=== PATIENT | female | born 1995 | race Two or more races ===

== ENCOUNTER 2016-12-19 11:56 | Emergency (ER) | payer SELFPAY ==
[2016-12-19 12:00] VITALS: TEMP 98; BMI 35.4
[2016-12-19] MEDS ORDERED: KETOROLAC TROMETHAMINE 30 MG/1 ML VIAL IVPUSH ONE (12:32)
[2016-12-19] MEDS ORDERED: KETOROLAC TROMETHAMINE 30 MG/1 ML VIAL ONE (12:46)
--- NOTE | 2016-12-19 12:51 | PDOC ---
History of Present Illness - General Chief Complaint: Pain, Acute Stated Complaint: PAIN, ACUTE Time Seen by Provider: 12/19/16 12:20 History Source: Patient - History of Present Illness Timing/Duration: reports: getting worse Quality: reports: severe Past History - Past Medical History Allergies/Adverse Reactions: Allergies Allergy/AdvReac Type Severity Reaction Status Date / Time No Known Allergies Allergy Verified 12/19/16 12:00 Home Medications: Ambulatory Orders NK [No Known Home Medication] 09/13/16 Other medical history: PATIENT DENIES MEDICAL HISTORY - Reproductive History Polycystic Ovaries: Yes - Psycho/Social/Smoking Cessation Hx Suicidal Ideation: No Smoking Status: No Smoking History: Never smoked Number of Cigarettes Smoked Daily: 0 Information on smoking cessation initiated: No Hx Alcohol Use: No Drug/Substance Use Hx: No Review of Systems - Review of Systems Constitutional: No: Chills, Fever ABD/GI: Yes: Nausea. No: Vomiting : No: Dysuria, Hematuria *Physical Exam - Vital Signs Last Vital Signs Temp Pulse Resp BP Pulse Ox 98.0 F 78 16 124/65 97 12/19/16 11:58 12/19/16 11:58 12/19/16 11:58 12/19/16 11:58 12/19/16 11:58 - Physical Exam General Appearance: Yes: Appropriately Dressed. No: Apparent Distress HEENT: positive: Normal Voice Neck: positive: Supple Respiratory/Chest: negative: Respiratory Distress Female Pelvic Exam: positive: cervical os closed, normal adnexa. negative: CMT , adnexal tenderness, vaginal bleeding Gastrointestinal/Abdominal: positive: Tender, Soft. negative: Increased Bowel Sounds, Distended, Guarding Musculoskeletal: negative: CVA Tenderness Integumentary: positive: Dry, Warm Neurologic: positive: Fully Oriented, Alert, Normal Mood/Affect (to mid and L suprapubic area, NT over mcburneys) ED Treatment Course - LABORATORY CBC & Chemistry Diagram: 12/19/16 12:55 12/19/16 12:55 - RADIOLOGY Radiology Studies Ordered: Category Date Time Status PELVIS(OTHER) US [US] Stat Ultrasound 12/19/16 12:29 Ordered TRANSVAGINAL ULTRASOUND US [US] Stat Ultrasound 12/19/16 12:29 Ordered - Medications Given in the ED: ED Medications Discontinued Medications Generic Name Dose Route Start Last Admin Trade Name Freq PRN Reason Stop Dose Admin Ketorolac Tromethamine 30 mg 12/19/16 12:32 12/19/16 12:47 Toradol Injection - IVPUSH 12/19/16 12:33 30 mg ONCE ONE Administration Medical Decision Making - Medical Decision Making 12/19/16 12:48 21 yo F, endorses h/o b/l ovarian cysts, told she had "many cysts" on US 2 years ago, f[place]u [facility], here w/ severe pelvic pain, mostly on the L side x 1 week. +nausea yesterday, no vomiting, f/c, dysuria or abnl vag discharge. States she has been dx w/ cysts, has chronic intermittent pelvic pain but usually stays home as she hates coming to the ER as per pt. This time, pain os worse so decided to come in. See exam R/o torsion H/o ovarian cysts +ttp to mid and L suprapubic area w/ unremarkable pelvic exam -pain control -labs -US 12/19/16 13:27 Preg test +. Pt states she is on OCP x 1 year and is compliant. No vag bleed currently. Is , 4 weeks per LMP. Beta and US pending 12/19/16 13:31 12/19/16 13:32 12/19/16 15:24 Beta 241 w/ no viable IUP and no adnexal masses on US. L ovarian cyst w/ FF seen w/ no e/o torsion. Pt given copy of US. Will dc to f/u with PLATE GRAINER in 2 days for rpt evaluation w/ beta and possible rpt US. Pt aware to return to ED in 2 days if unable to be seen by her PLATE GRAINER 12/19/16 15:30 12/19/16 15:31 12/19/16 15:31 *DC/Admit/Observation/Transfer Diagnosis at time of Disposition: Qualifiers: Weeks of gestation: unspecified Qualified Code(s): Z33.1 - state, incidental - Discharge Dispostion Disposition: HOME Condition at time of disposition: Good - Patient Instructions Printed Discharge Instructions: Managing Symptoms of Additional Instructions: Your bhcg was 241 with no evidence of an intrauterine and no evidence of an ectopic . This most likely reflects early . You need to see your PLATE GRAINER in 2 days for repeat beta HCG and possibly repeat ultrasound. If you are unable to see your integrative medicine physician, return to ED in 2 days. Take tylenol only for pain, no motrin/ibuprofen
[2016-12-19 13:06] LABS: URINE APPEARANCE CLEAR; URINE BILIRUBIN NEGATIVE (NEGATIVE); URINE COLOR YELLOW; URINE GLUCOSE (UA) NEGATIVE (NEGATIVE); URINE KETONE NEGATIVE (NEGATIVE); URINE NITRITE NEGATIVE (NEGATIVE); URINE PROTEIN NEGATIVE (NEGATIVE); URINE UROBILINOGEN NEGATIVE E.U./dl (0.2-1.0)
[2016-12-19 13:06] LABS: BASOPHIL 0.5 % (0-2.0); EOSINOPHIL 1.6 % (0-4.5); MCH 29.3 pg (25.7-33.7); MCHC 33.1 g/dl (32.0-36.0); MEAN CELL VOLUME 88.8 fl (80-96); NEUTROPHILS 55.6 % (42.8-82.8); PLATELET COUNT 254 K/MM3 (134-434); RDW 13.3 % (11.6-15.6); WHITE BLOOD COUNT 7.1 K/mm3 (4.0-10.0)
[2016-12-19 13:15] LABS: URINE BLOOD 1+ (NEGATIVE); URINE LEUK ESTERASE TRACE (NEGATIVE)
[2016-12-19 13:30] LABS: ALBUMIN 3.5 g/dl (3.4-5.0); ALK PHOS 106 U/L (45-117); ANION GAP 11 (8-16); BILIRUBIN,TOTAL 0.2 mg/dL (0.2-1.0); CO2 23 mmol/L (21-32); COCKROFT - GAULT 210.6215; CREATININE 0.6 mg/dL (0.55-1.02); GLUCOSE,RANDOM 87 mg/dL (74-106); SGOT/AST 41 U/L (15-37); SGPT/ALT 70 U/L (12-78); TOT PROT 7.2 g/dl (6.4-8.2)
[2016-12-19 14:52] LABS: URINE MUCUS MANY; URINE RBC 1 /hpf (0-3); URINE WBC 2 /hpf (3-5)
[2016-12-19 15:43] VITALS: BP 120/72; PULSE 80
== END 2016-12-19 15:43 | disposition home or self-care (01) ==
LOC: JER 11:56
PROC: 3E0333Z Introduction of Anti-inflammatory into Peripheral Vein, Percutaneous Approach (ICD-10-PCS; principal; 2016-12-19)
DX: O34.81 Maternal care for other abnormalities of pelvic organs, first trimester (principal); N83.292 Other ovarian cyst, left side; N83.291 Other ovarian cyst, right side; Z3A.00 Weeks of gestation of pregnancy not specified
CPT/HCPCS: 36415; 76801-TC; 76817-TC; 80053; 81003; 81015; 84702; 84703; 85025; 87086; 87491; 87591; 99283-25

== ENCOUNTER 2016-12-21 14:16 | Emergency (ER) | payer SELFPAY ==
[2016-12-21 14:27] VITALS: BP 117/48; PULSE 80; TEMP 98.5; BMI 26.5
== END 2016-12-21 15:55 | disposition home or self-care (01) ==
LOC: JERFT 14:16
DX: O26.891 Other specified pregnancy related conditions, first trimester (principal); Z3A.01 Less than 8 weeks gestation of pregnancy
CPT/HCPCS: 36415; 84702; 99281-25

== ENCOUNTER 2017-08-08 07:20 | Inpatient (IN) | payer OTHER ==
[~2017-08-08 07:20] MED LIST: CITRIC ACID/SODIUM CITRATE 30 ML UNIT-DOSE CUP PO ONE; ELECTROLYTE-148 SOLN 500 ML IV ONE
[2017-08-08] MEDS ORDERED: ELECTROLYTE-148 SOLN 1,000 ML IV SCH (07:50)
[2017-08-08 08:15] VITALS: BMI 32.3
[2017-08-08] MEDS ORDERED: OXYTOCIN 20 UNITS in 0.9% NS 20 UNIT/1,000 ML INFUS.BAG IV ONE (08:34)
[2017-08-08] MEDS ORDERED: morphine SULFATE/Preservative Free 0.5 MG/ML (1cc Syringe) ONE (08:38)
[2017-08-08] MEDS ORDERED: ceFAZolin SODIUM 1 GM VIAL ONE (08:43)
[2017-08-08] MEDS ORDERED: OXYTOCIN 10 UNITS/ML VIAL ONE ×3 (08:44→08:47)
[2017-08-08] MEDS ORDERED: SODIUM CHLORIDE 0.9% P/F 10 ML VIAL IJ ONE (09:24)
[2017-08-08] MEDS ORDERED: ONDANSETRON 4 MG/2 ML VIAL IVPUSH PRN (09:30)
[2017-08-08] MEDS ORDERED: KETOROLAC TROMETHAMINE 30 MG/1 ML VIAL ONE (09:36)
[2017-08-08] MEDS: OXYTOCIN 20 UNITS in 0.9% NS 20 UNIT/1,000 ML INFUS.BAG IV SCH ×2 (10:00→18:30)
[2017-08-08 10:17] LABS: ARTERIAL BLOOD GAS BASE EXCESS -2.5 meq/l (-2-2); ARTERIAL BLOOD GAS HCO3 24.8 meq/L (22-26); ARTERIAL BLOOD GAS PO2 9.7 mmHg (80-100); ARTERIAL BLOOD GAS pH 7.29 (7.35-7.45)
[2017-08-08 10:23] LABS: VENOUS BLOOD GAS HCO3 21.7 meq/L (19-25); VENOUS PH 7.33 (7.32-7.42)
[2017-08-08 10:27] LABS: ARTERIAL BLD GAS O2 SATURATION 27.9 % (90-98.9); ARTERIAL BLOOD GAS BASE EXCESS -2.5 meq/l (-2-2); ARTERIAL BLOOD GAS PO2 17.3 mmHg (80-100); ARTERIAL BLOOD GAS pH 7.31 (7.35-7.45)
[2017-08-08] MEDS ORDERED: SENNOSIDES/DOCUSATE COMBO (SENNA PLUS) TABLET (UD) PO PRN (10:29)
[2017-08-08] MEDS ORDERED: IBUPROFEN 800 MG/8 ML IJ IVPB PRN (10:29)
[2017-08-08] MEDS ORDERED: METHYLERGONOVINE MALEATE 0.2 MG/1 ML AMP IM PRN (10:29)
[2017-08-08 10:31] LABS: VENOUS PH 7.34 (7.32-7.42)
--- NOTE | 2017-08-08 10:45 | HP ---
Past Medical History - Primary Care Physician PCP:: Tanisha Posada - Admission Chief Complaint: 21 yrs , Twin gestation, is admitted in labor , onset LP since 5.30 AM. she is scheduled for elective primary c/section due to Vx / Transverse lie at 37.2 weeks gestation , as per recommendations by MFM ( Dr luke ) History of Present Illness: PNC at , [facility] (formerly [facility]3] . . wt gain 20 lbs work Up : O Pos, Hbsag Neg, Rpr nr, Rubella pos , Hiv neg (01/31 & ), Sickle neg , Quantiferon neg, .pap 08/31/16 NILM, Gc/ct neg (01/31 & 07/30/17) 1 hr Gtt 141. , 3 Hr Gtt wnl ( 82, 156, 117, 116 ). Gbs neg Patient was followed by MFM by serial sonograms for growth . 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 Weeks Gestation by Dates: 36.6 ...EDC by Dates: 08/30/17 ...EDC by Sono: 08/28/17 (37.2/7 weeks ) Heme/Onc: Yes: Anemia (rx po iron & pnv during ) Infectious Disease: No: AIDS, HIV, STD's, Tuberculosis Psych: No: Anxiety, Bipolar, Depression Endocrine: No: Diabetes Mellitus, Hypothyroidism - Past Surgical History Past Surgical History: Yes: None Hx Myomectomy: No Hx Transabdominal Cerclage: No - Smoking History Smoking history: Never smoked Have you smoked in the past 12 months: No Aproximately how many cigarettes per day: 0 - Alcohol/Substance Use Hx Alcohol Use: No History of Substance Use: reports: None Home Medications - Allergies Allergies/Adverse Reactions: Allergies Allergy/AdvReac Type Severity Reaction Status Date / Time No Known Allergies Allergy Verified 07/25/17 10:52 - Home Medications Home Medications: Ambulatory Orders Pnv95/Ferrous Fumarate/FA [ Vitamin Tablet] 1 each PO DAILY 06/27/17 Physical Exam - Maternity Vital Signs: Vital Signs Temperature 98.3 F 08/08/17 08:30 Pulse Rate 68 08/08/17 08:30 Respiratory Rate 20 08/08/17 08:30 Blood Pressure 139/84 08/08/17 08:30 O2 Sat by Pulse Oximetry (%) Constitutional: Yes: Well Nourished, Anxious, Moderate Distress Eyes: Yes: WNL HENT: Yes: WNL, Normocephalic Neck: Yes: WNL Cardiovascular: Yes: WNL, Regular Rate and Rhythm Lungs: Clear to auscultation Breast(s): Yes: WNL - Abdominal Exam/OB Fundal Height: 38 Number of Fetuses: Multiple Presentation: Vertex, Transverse Contractions: Yes Regularity: Regular (2-3 min) Intensity: Mod/Strong Monitor Mode: External Heart Rate (range): 120-130 LLQ / B baby 130-140 MLQ Heart Rate Location: [facility] Category: I Accelerations: Uniform Decelerations: None - Vaginal Exam/OB Vaginal Bleediing: No Speculum Exam: No Dilatation (cm): close Effacement (%): 70 Amniotic Membrane Status: Intact Presentation: Vertex/Position (A -Baby Vx, Bbay presentation transverse , head to left) Station: -1 - Physical Exam Musculoskeletal: Yes: WNL Extremities: Yes: WNL. No: Calf Tenderness Edema: Yes Edema: LLE: 1+, RLE: 1+ Integumentary: Yes: WNL Deep Tendon Reflex Grade: Normal +2 ...Motor Strength: WNL Psychiatric: Yes: WNL, Alert, Oriented - Labs Lab Results: Laboratory Tests 08/01/17 08/01/17 08/01/17 11:20 11:20 11:20 WBC 5.7 RBC 3.74 Hgb 10.5 L D Hct 32.1 L D Plt Count 141 D PT with INR 9.90 L INR 0.88 PTT (Actin FS) 26.8 L Sodium 138 Potassium 3.7 Carbon Dioxide 19 L BUN 12 Creatinine 0.8 D Random Glucose 142 H D Calcium 8.0 L RPR Titer 08/01/17 11:20 WBC RBC Hgb Hct Plt Count PT with INR INR PTT (Actin FS) Sodium Potassium Carbon Dioxide BUN Creatinine Random Glucose Calcium RPR Titer Nonreactive Hemorrhage Risk Assessment - Risk Factors Medium Risk Factors: Yes: Multiple gestation Risk Score: 1 Risk Level: Medium Risk Problem List - Problems (1) 37 or more weeks gestation of Code(s): ZMD4316 - (2) Twin , monochorionic diamniotic in third trimester Code(s): O30.033 - TWIN , MONOCHORIONIC/DIAMNIOTIC, THIRD TRIMESTER (3) Labor established Code(s): [id number] - Assessment/Plan 21 yrs , 37.2/7 weeks twins ( vx & transverse , monochorionic diamniotic twins ) pt in early labor plan delivery by primary c/section
--- NOTE | 2017-08-08 11:10 | OP ---
Operative Note - Note: Operative Date: 08/08/17 Pre-Operative Diagnosis: 37.2 weeks, twin vx/transverse in labor Operation: Primary LFTC/Section Findings: A Baby 9.30 am Baby Boy, Vx LOT , 9/9, Wt 6'7" , Ht 18.5" B Baby 9.32 AM [place] Boy, Double Footling Breech , 9/9 , Wt6", Ht 18.5" Placenta monochorionic diamniotic Dr Francisco , Wallpaper Inspector And Shipper present in the room . Both tubes & ovaries normal Left partubal cyst 3cmm cauterized at base , sent for pathology Right partubal cyst 1 cm cauterized at pedicle sent for pathology Post-Operative Diagnosis: Other (left & right partubal cysts) Surgeon: Tanisha Posada Fly Fishing Guide: Miguelangel Trejo Anesthesiologist/ORCHESTRA TEACHER: Jose L Martinez Anesthesia: Spinal Specimens Removed: cord segments for A & B baby for cord gases. cord blood sample. placenta. Lt paratubal cyst. Rt paratubal cyst Estimated Blood Loss (mls): 800 Drains, Volume Out (mls): 300 (page output in OR ) Operative Report Dictated: Yes
--- NOTE | 2017-08-08 11:24 | PN ---
Delivery - Delivery Section: Primary, Low Flap Transverse (& excision of bilateral tubal cysts) Type of Anesthesia: Epidural, Spinal Episiotomy/Laceration: None EBL (cc): 800 (page put put 300ml geovanny color ) Delivery, Single - [place] Feeding Plan Initial Plan: Elected not to breastfeed exclusively throughout hospitalization Delivery, Multiple Births - Stages of Labor Delivery Baby "A" Date: 08/08/17 Time: 09:30 Placenta/Membranes "A" Date: 08/08/17 Time: 09:35 Delivery Baby "B" Date: 08/08/17 Time: 09:32 - Condition of Multiple Births 1 (A) Infant Gender: Male Weight: 6 lb 7 oz Position: Left, OT Total Hours ROM (HRS/MINS): 5min Placenta: Yes: Manual Removal, Uterine Exploration [place] 2 (B) Grit Removal Operator/Branch Operations Specialist Present: Yes Grit Removal Operator: Lizzy Francisco Infant Gender: Male Weight: 6 lb Position: SP (double footling breech) Total Hours ROM (HRS/MINS): 5 min Placenta: Yes: Manual Removal, Uterine Exploration (monochorionic diamniotic twin placenta) - [place] 1 (A) 1 Minute Score: 9 1 (A) 5 Minutes Score: 9 2 (B) 1 Minute Score: 9 [place] 2 (B) 5 Minutes Score: 9 Remarks - Remarks Remarks: 21 yrs Indication C/section , 37.2 weeks Twin gestation in labor , Vx/ transverse lie Gbs neg pnc at 2, [facility] intraop course uneventful iv ancef 1 gm ivpb prior to incision was given
--- NOTE | 2017-08-08 13:20 | DS ---
Physical Exam-MEDICAL STAFF PHYSICIAN Vital Signs: Vital Signs Temperature 97.9 F 08/08/17 11:15 Pulse Rate 71 08/08/17 11:15 Respiratory Rate 18 08/08/17 12:00 Blood Pressure 121/70 08/08/17 11:15 O2 Sat by Pulse Oximetry (%) 100 08/08/17 11:15 Selected Entries 08/12/17 09:06 Temperature 98.6 F Pulse Rate 71 Blood Pressure 124/83 Constitutional: Yes: Well Nourished Eyes: Yes: WNL HENT: Yes: WNL Neck: Yes: WNL Cardiovascular: Yes: WNL Respiratory: Yes: WNL Gastrointestinal: Yes: WNL, Normal Bowel Sounds, Soft. No: Distention Renal/: Yes: WNL ....Post : Yes: Uterus firm, Uterus non-tender, Moderate lochia rubra Breast(s): Yes: WNL Musculoskeletal: Yes: WNL Extremities: Yes: WNL. No: Calf Tenderness Edema: LLE: 1+, RLE: 1+ Wound/Incision: Yes: Clean/Dry, Well Approximated, [place] Intact, Open to air. No: Reddened, Bleeding, Excoriated Neurological: Yes: WNL ...Motor Strength: WNL Psychiatric: Yes: WNL, Alert Labs: Laboratory Tests 08/11/17 06:00 WBC 7.7 RBC 2.94 L Hgb 8.4 L Hct 25.6 L Plt Count 170 D Delivery - Delivery Section: Primary, Low Flap Transverse (& excision of bilateral tubal cysts) Type of Anesthesia: Epidural, Spinal Episiotomy/Laceration: None EBL (cc): 800 (page put put 300ml geovanny color ) Delivery, Single - Feeding Plan Initial Plan: Elected not to breastfeed exclusively throughout hospitalization Delivery, Multiple Births - Stages of Labor First Stage Date: 08/08/17 Time: 05:30 Delivery Baby "A" Date: 08/08/17 Time: 09:30 Placenta/Membranes "B" Date: 08/08/17 Time: 09:35 Placenta/Membranes "A" Date: 08/08/17 Time: 09:35 Delivery Baby "B" Date: 08/08/17 Time: 09:32 - Condition of Multiple Births [place] 1 (A) Glass Washer/Traffic Coordinator Present: Yes Glass Washer: Cristal Easely Gender: Male Weight: 6 lb 7 oz Total Hours ROM (HRS/MINS): 0/05 2 (B) Glass Washer/Traffic Coordinator Present: Yes Glass Washer: Cristal Easley Gender: Male Weight: 6 lb Total Hours ROM (HRS/MINS): 0/05 - 1 (A) 1 Minute Score: 9 1 (A) 5 Minutes Score: 9 2 (B) 1 Minute Score: 9 [place] 2 (B) 5 Minutes Score: 9 Remarks - Remarks Remarks: 21 yrs Indication C/section , 37.2 weeks Twin gestation in labor , Vx/ transverse lie Gbs neg pnc at 2, [facility] intraop course uneventful iv ancef 1 gm ivpb prior to incision was given . post op course uneventful post op anemia was counselled she will ct po iron & pnv she is discharged by Dr Mckeon on 08/12/17 she will rtc on 08/13/17 for nain removal. Discharge Summary Reason For Visit: C/SECTION Current Active Problems 37 or more weeks gestation of (Acute) Labor established (Acute) Twin , monochorionic diamniotic in third trimester (Acute) Condition: Stable - Instructions Diet, Activity, Other Instructions: Post Instructions DIET: Continue good diet high in protein, calcium, and iron rich foods. Drink at least eight (8) glasses of water daily in addition to other fluids. ct Regular diet MEDICATIONS: Continue vitamins and iron as previously directed. Motrin and Tylenol may be taken for minor discomfort. ACTIVITY: Mild to moderate exercise may be started in two (2) weeks. Take frequent rest periods. Resume normal activity after six (6) week check up. WOUND CARE OF OPERATIVE SITE: Continue use of perineal bottle until vaginal discharge stops. Keep area clean. Shower daily. Keep abdominal wound dry. Report any drainage or redness to physician. Tub baths, tampons and douches are not permitted for [address] Breast feeding & or Bottle feeding BREAST CARE: (For those that are not breast feeding): If engorgement occurs: Wear tight fitting bra. Take Tylenol or Motrin for pain. Apply cold packs (ice in bags to each breast ) FAMILY PLANNING: There are many control alternatives to pursue and they should be discussed at your first office visit. You may resume sexual activity after your six (6) week check up. (Remember, breast feeding is not a contraceptive) NEXT PHYSICIAN APPOINTMENT: Be certain to call for a one (1) week appointment, unless otherwise directed. Rtc Saturday for nain removal Call Clinic or got to Emergency Dept if you have any of the following: Heavy vaginal bleeding Painful urination Leg pain Unusual odor noted to vaginal bleeding High fever Red streaking noted on breast Referrals: Tanisha Posada MD [Staff Physician] - Disposition: HOME - Home Medications Comprehensive Discharge Medication List: Ambulatory Orders Pnv95/Ferrous Fumarate/FA [ Vitamin Tablet] 1 each PO DAILY 06/27/17 Acetaminophen [Tylenol .Regular Strength -] 500 mg PO Q4H PRN #30 tablet Ferrous Sulfate [Feosol] 325 mg PO BIDPC #60 tab 08/08/17 Ibuprofen [Motrin -] 600 mg PO Q4H PRN #30 tablet 08/08/17 Vitamins (Sjr) - 1 tab PO DAILY #30 tablet 08/08/17
[2017-08-08] MEDS: CEFAZOLIN 1 GM PUSH 1 GM/10 ML DISP.SYRIN IVPUSH SCH (17:26)
[2017-08-09] MEDS: CEFAZOLIN 1 GM PUSH 1 GM/10 ML DISP.SYRIN IVPUSH SCH ×2 (01:53→10:54)
[2017-08-09] MEDS: OXYTOCIN 20 UNITS in 0.9% NS 20 UNIT/1,000 ML INFUS.BAG IV SCH ×2 (01:53→16:42)
[2017-08-09] MEDS ORDERED: oxyCODONE HCL 5 MG TABLET PO PRN (08:00)
[2017-08-09 08:42] LABS: BASO % 0.6 % (0-2.0); EOS % 0.4 % (0-4.5); MCH 28.2 pg (25.7-33.7); MCHC 32.7 g/dl (32.0-36.0); MEAN CELL VOLUME 86.3 fl (80-96); MEAN PLT VOLUME 11.3 fl (7.5-11.1); PLATELET COUNT 120 K/MM3 (134-434); RDW 15.7 % (11.6-15.6); WHITE BLOOD COUNT 8.2 K/mm3 (4.0-10.0)
[2017-08-09] MEDS: SIMETHICONE 80 MG TAB.CHEW (FP) PO PRN ×2 (08:46→14:18)
[2017-08-09] MEDS: IBUPROFEN 600 MG TABLET (FP) PO PRN ×3 (08:46→20:50)
[2017-08-09] MEDS: ACETAMINOPHEN 325 MG TABLET (FP) PO PRN (08:47)
--- NOTE | 2017-08-09 10:03 | OP ---
DATE OF OPERATION: 08/08/2017 PREOPERATIVE DIAGNOSIS: A 37.2 weeks' twin gestation, vertex transverse lie and patient in early labor. OPERATION DONE: Primary low-flap transverse section. POSTOPERATIVE DIAGNOSES: 1. A 37.2 weeks' twin gestation, vertex transverse lie and patient in early labor. 2. Left and right paratubal cysts. SURGEON: Tanisha Posada MD SPANISH MEDICAL INTERPRETER: ANGELES Tierney ANESTHESIOLOGIST: Michelle Domingo ANESTHESIA: Spinal. FINDINGS: This is a 21-year-old, 2, para 1-0-0-1 who is 37.2 weeks, had onset of labor since 5:30 a.m. Cervix is closed, station vertex is -2 to -1 station, and A Baby is vertex, B Baby is in transverse lie. DESCRIPTION OF PROCEDURE: Abdomen was shaved, prepped. Suárez catheter was placed. Patient was taken to the operating room table and spinal anesthesia was given and the patient was placed in supine position. Abdomen was painted and draped in usual manner. Pfannenstiel incision was made in the skin and subcutaneous tissue. Anterior rectus sheath was incised transversely. Bleeding points were clamped and cauterized. Rectus muscle was amputated from the rectus sheath. Parietal peritoneum was opened vertically. Lower flap of the peritoneum was incised transversely, and A Baby sac was punctured, and the A Baby was delivered from the vertex presentation LOT position at 9:30 a.m. Apgars were 9 and 9, baby boy. Cord was clamped, cut, and cord blood was collected. Baby's weight was 6 pounds 7 ounces, and the baby was handed over. Cord segments also were cut for the cord blood gases. Then, B sac was punctured. Amniotic fluid was clear. Double footling breech was noted. The baby's legs, the buttocks, and then, the body, anterior arm and the posterior arm, and lastly, the head was delivered, a baby boy, at 9:32 a.m. Apgars were 9 and 9. Baby's weight was 6 pounds. Again, the cord was clamped. Cord segment was sent for ABG, and cord blood was collected. Placenta was removed completely with the membrane. It was monochorionic, diamniotic placenta and sent for pathology examination. Uterine cavity was cleaned, and uterine incision was closed in 2 layers. First layer was a continuous locking with a Biosyn 0 suture. Second layer was a continuous, intermittently locking with a Biosyn 0 suture. Hemostasis was verified, and the bladder peritoneum was closed also with a Biosyn 0 suture. Continuous suture was taken. Both the tubes and ovaries were normal. At the terminal end of the tube, 3-cm simple, bilateral tubal cysts were noted. So, at the base of the cyst, a Dianne clamp was applied, and with the cautery, it was dissected. The cyst was sent for pathology examination. Hemostasis was verified, and then, also, on the right side, 1-cm cyst with a pedicle was noted in the pedicle was cauterized and the cyst was sent for pathology examination. Irrigation was done. The sponge, instrument, and needle count was correct. Hemostasis verified again , and abdominal closure was done. Parietal peritoneum was closed with a Vicryl 0 suture. Muscles were approximated together with Vicryl interrupted sutures, and the anterior rectus sheath was closed with a Vicryl 0 continuous suture. Hemostasis was verified in the subcutaneous tissue and subcutaneous interrupted sutures were taken and skin was approximated with nain. A pressure dressing was given. Blood clots were removed from the vagina. The patient had received 1 g of IV Ancef prior to the incision. Estimated blood loss was 800 mL. Urine output intraoperatively was 300 mL. It was geovanny color. Gerson [id number] MTDD
[2017-08-09] MEDS ORDERED: BISACODYL 10 MG SUPP.RECT RC PRN (10:29)
[2017-08-09] MEDS: ENOXAPARIN NA (PORCINE) 40 MG/0.4 ML DISP.SYRIN SQ SCH (10:53)
[2017-08-09] MEDS: PRENATAL VITAMINS W/ FOLIC ACID TABLET (FP) PO SCH (10:54)
--- NOTE | 2017-08-09 11:16 | PN ---
Progress Note (short form) - Note Progress Note: Anesthesia postop note 21y/o F s/p spinal anesthesia for section, duramorph for postop pain POD#1, vss, aaox3, pain well controlled, sensorymotor intact distally. No anesthesia complications so far
--- NOTE | 2017-08-09 14:17 | PN ---
Progress Note (short form) - Note Progress Note: pod 1 doing well, no c/o, no dizziness CBC, BMP 08/09/17 08:10 Last Vital Signs Temp Pulse Resp BP Pulse Ox 97.9 F 68 18 116/73 100 08/09/17 06:00 08/09/17 09:40 08/09/17 09:40 08/09/17 09:40 08/08/17 11:15 abdomen soft, no distension, no cva incision dry, clean no excess vaginal bleeding no calf tenderness impression anemia , asymptomatic , no active vaginal bleeding plan iron ,vit when on regular diet repeat cbc 3 post op day 3 ambulate
[2017-08-09] MEDS: oxyCODONE HCL 5 MG TABLET PO PRN ×2 (14:18→20:50)
[2017-08-09] MEDS: FERROUS SO4 325 MG TABLET (FP) PO SCH (18:12)
[2017-08-10] MEDS: PRENATAL VITAMINS W/ FOLIC ACID TABLET (FP) PO SCH (09:46)
[2017-08-10] MEDS: ENOXAPARIN NA (PORCINE) 40 MG/0.4 ML DISP.SYRIN SQ SCH (09:47)
[2017-08-10] MEDS: FERROUS SO4 325 MG TABLET (FP) PO SCH ×2 (09:47→18:06)
[2017-08-10] MEDS: oxyCODONE HCL 5 MG TABLET PO PRN ×2 (09:50→17:25)
[2017-08-10] MEDS: SIMETHICONE 80 MG TAB.CHEW (FP) PO PRN ×2 (09:51→17:24)
[2017-08-10] MEDS: IBUPROFEN 600 MG TABLET (FP) PO PRN ×2 (09:51→17:24)
--- NOTE | 2017-08-10 18:30 | PN ---
Post Progress Note - Subjective Subjective: Pt feeling well. Mild incisional pain. OOB and ambulating. Breast and bottle feeding Post Day: 2 Type of Delivery: Primary C/S Vital Signs: Vital Signs Temperature 98.7 F 08/10/17 10:00 Pulse Rate 67 08/10/17 10:00 Respiratory Rate 20 08/10/17 10:00 Blood Pressure 129/62 08/10/17 10:00 O2 Sat by Pulse Oximetry (%) 100 08/08/17 11:15 Breast Exam: Yes: Soft Uterus: Yes: Fundus Firm Incision: Yes: Nakia intact Abdomen/GI: Yes: Abdomen soft Lochia, amount: Small Extremities: Yes: Calves non-tender Perineum: Yes: Intact Activity: Ambulating - Labs Labs: CBC WBC 8.2 K/mm3 (4.0-10.0) D 08/09/17 08:10 RBC 2.95 M/mm3 (3.60-5.2) L D 08/09/17 08:10 Hgb 8.3 GM/dL (10.7-15.3) L D 08/09/17 08:10 Hct 25.5 % (32.4-45.2) L D 08/09/17 08:10 MCV 86.3 fl (80-96) 08/09/17 08:10 MCH 28.2 pg (25.7-33.7) 08/09/17 08:10 MCHC 32.7 g/dl (32.0-36.0) 08/09/17 08:10 RDW 15.7 % (11.6-15.6) H D 08/09/17 08:10 Plt Count 120 K/MM3 (134-434) L 08/09/17 08:10 MPV 11.3 fl (7.5-11.1) H 08/09/17 08:10 Neutrophils % 66.0 % (42.8-82.8) D 08/09/17 08:10 Lymphocytes % 28.3 % (8-40) D 08/09/17 08:10 Monocytes % 4.7 % (3.8-10.2) 08/09/17 08:10 Eosinophils % 0.4 % (0-4.5) D 08/09/17 08:10 Basophils % 0.6 % (0-2.0) 08/09/17 08:10 Assessment/Plan Pt POD# 2 s/p primary c/s for twins continue postop care doing well ambulation pain management as needed Dr. Barragan
[2017-08-11] MEDS: SIMETHICONE 80 MG TAB.CHEW (FP) PO PRN ×4 (00:37→21:54)
[2017-08-11] MEDS: oxyCODONE HCL 5 MG TABLET PO PRN ×2 (00:37→07:54)
[2017-08-11] MEDS: IBUPROFEN 600 MG TABLET (FP) PO PRN ×4 (00:38→21:55)
[2017-08-11 08:02] LABS: BASO % 0.6 % (0-2.0); EOS % 3.4 % (0-4.5); MCH 28.5 pg (25.7-33.7); MCHC 32.7 g/dl (32.0-36.0); MEAN CELL VOLUME 87.1 fl (80-96); MEAN PLT VOLUME 10.6 fl (7.5-11.1); NEUT % 59.7 % (42.8-82.8); PLATELET COUNT 170 K/MM3 (134-434); RDW 15.8 % (11.6-15.6); WHITE BLOOD COUNT 7.7 K/mm3 (4.0-10.0)
[2017-08-11] MEDS: PRENATAL VITAMINS W/ FOLIC ACID TABLET (FP) PO SCH (09:21)
[2017-08-11] MEDS: ENOXAPARIN NA (PORCINE) 40 MG/0.4 ML DISP.SYRIN SQ SCH (09:21)
[2017-08-11] MEDS: FERROUS SO4 325 MG TABLET (FP) PO SCH ×2 (09:30→18:49)
[2017-08-11] MEDS: ACETAMINOPHEN 325 MG TABLET (FP) PO PRN ×2 (15:30→21:54)
--- NOTE | 2017-08-12 08:31 | PN ---
Progress Note (short form) - Note Progress Note: pod4 doing well, no c/o ,no dizziness ,no excess vaginal bleeding CBC, BMP 08/11/17 06:00 Last Vital Signs Temp Pulse Resp BP Pulse Ox 98.8 F 79 20 126/70 100 08/11/17 21:30 08/11/17 21:30 08/11/17 21:30 08/11/17 21:30 08/08/17 11:15 abdomen soft, no distension, no cva incision dry, clean no calf tenderness impression anemia , no c/o advised iron, vit follow up in clinic tomorrow for nain removal
[2017-08-12 09:12] VITALS: BP 124/83; PULSE 71; TEMP 98.6
[2017-08-12] MEDS: FERROUS SO4 325 MG TABLET (FP) PO SCH (09:40)
[2017-08-12] MEDS: ENOXAPARIN NA (PORCINE) 40 MG/0.4 ML DISP.SYRIN SQ SCH (09:40)
[2017-08-12] MEDS: PRENATAL VITAMINS W/ FOLIC ACID TABLET (FP) PO SCH (09:41)
--- NOTE | 2017-08-13 17:43 | PATH ---
Surgical Pathology Report Patient Name: MISA CASE [facility]. Rec. 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 Specimen(s) Received A: PLACENTA B: LEFT PARATUBAL CYST C: RIGHT PARATUBAL CYST Clinical History twin gestation Final Diagnosis A. PLACENTA, SECTION: 780 g THIRD TRIMESTER DIAMNIOTIC MONOCHORIONIC TWIN PLACENTA WITH TRIVASCULAR UMBILICAL CORDS. PLACENTAL MEMBRANES WITH FEW MECONIUM LADEN MACROPHAGES. B. FALLOPIAN TUBE, LEFT, PARATUBAL CYST, PARTIAL EXCISION: PORTION OF FALLOPIAN TUBE WITH PARATUBAL CYST. C. FALLOPIAN TUBE, RIGHT, PARATUBAL CYST, PARTIAL EXCISION: PORTION OF FALLOPIAN TUBE WITH PARATUBAL CYST. Electronically Signed Nohemi Kapadia M.D. Gross Description A. Received in formalin labeled "placenta," is a 780 g, 20.0 x 16.0 x 3.8 twin placenta comprised of 2 fused discs, by dividing membranes. There is one clamp marking the umbilical cord of placenta "A" and 2 clamps marking the umbilical cord of placenta "B", per the surgeon. The membranes are duran green, meconium stained, translucent with focal opacities and insert marginally. The umbilical cord of placenta "A" measures 25 cm in length and averages 1.3 cm in diameter. The cord inserts eccentrically, 3.5 cm to the nearest margin. No true knots or strictures are identified. Cut surface of the umbilical cord reveals 3 vessels. The umbilical cord of placenta "B" measures 8.5 cm in length and averages 1.2 cm in diameter. The cord inserts eccentrically, 1 cm to the nearest margin. No true knots or strictures are identified. Cut surface of the umbilical cord reveals 3 vessels. The surface of both discs is britton green, meconium stained with minimal fibrin deposition and appropriate caliber vessels. The maternal surface of both discs is duran-red with focal defects. Sectioning reveals a 1.8 cm in greatest dimension duran intraparenchymal lesion within placenta "A". Sectioning of the remaining specimen reveals red-brown, spongy parenchyma. Rn Night sections are submitted in 7 cassettes as follows: 1-placenta "A" membrane roll and umbilical cord; 2-placenta "A" lesion; 3-additional senior sales representative placenta "A" parenchyma; 4-dividing membranes; 5-placenta "B" membrane roll and umbilical cord; 6-7-full thickness sections of placenta "B". B. Received in formalin labeled "left paratubal cyst," is a 4.0 x 2.2 x 1.4 cm intact cyst containing clear serous fluid. The outer surface and the inner lining of the cyst are duran-britton and smooth. No excrescences are identified. Rn Night sections are submitted in one cassette. C. Received in formalin labeled "right paratubal cyst," is a 1.4 x 1.0 x 0.6 cm intact cyst containing clear serous fluid. The outer surface and the inner lining of the cyst are duran-britton and smooth. No excrescences are identified. The specimen is sectioned and entirely submitted in one cassette. 08/12/2017 [facility]08/12/2017
== END 2017-08-12 13:00 | disposition home or self-care (01) | DRG 540 ==
LOC: JLDR 07:20 → J3W 11:29
PROVIDERS: ADMIT Obstetrics & Gynecology; ATTEND Obstetrics & Gynecology
PROC: 10D00Z1 Extraction of Products of Conception, Low, Open Approach (ICD-10-PCS; principal; 2017-08-08)
PROC: 0UB70ZZ Excision of Bilateral Fallopian Tubes, Open Approach (ICD-10-PCS; 2017-08-08)
DX: O32.1XX1 Maternal care for breech presentation, fetus 1 (principal); O32.2XX1 Maternal care for transverse and oblique lie, fetus 1; O75.89 Other specified complications of labor and delivery; N83.8 Other noninflammatory disorders of ovary, fallopian tube and broad ligament; O30.033 Twin pregnancy, monochorionic/diamniotic, third trimester; O99.02 Anemia complicating childbirth; D64.9 Anemia, unspecified; Z3A.37 37 weeks gestation of pregnancy; Z37.2 Twins, both liveborn
CPT/HCPCS: 36415; 36600; 82803; 85025; 88304-TC; 88307-TC

== ENCOUNTER 2018-08-21 19:09 | Emergency (ER) | payer OTHER ==
[2018-08-21 19:25] VITALS: BP 125/67; PULSE 73; TEMP 98.6; BMI 37.8
[2018-08-21] MEDS ORDERED: ACETAMINOPHEN 325 MG TABLET (FP) PO ONE (20:20)
[2018-08-21] MEDS ORDERED: CYCLOBENZAPRINE HCL 10 MG TABLET (FP) ONE (20:22)
[2018-08-21] MEDS ORDERED: ACETAMINOPHEN 325 MG TABLET (FP) ONE (20:22)
[2018-08-21] MEDS ORDERED: CYCLOBENZAPRINE HCL 5 MG TABLET PO ONE (20:30)
--- NOTE | 2018-08-21 21:11 | PDOC ---
History of Present Illness - General Chief Complaint: Back Pain Stated Complaint: PAIN, ACUTE Time Seen by Provider: 08/21/18 20:09 History Source: Patient Exam Limitations: No Limitations Past History - Past Medical History Allergies/Adverse Reactions: Allergies Allergy/AdvReac Type Severity Reaction Status Date / Time No Known Allergies Allergy Verified 08/21/18 19:21 Home Medications: Ambulatory Orders Cyclobenzaprine HCl [Flexeril -] 10 mg PO HS PRN #7 tablet 08/21/18 Asthma: No Cancer: No Cardiac Disorders: No COPD: No Diabetes: No HTN: No Seizures: No Thyroid Disease: No - Reproductive History Polycystic Ovaries: Yes - Suicide/Smoking/Psychosocial Hx Smoking Status: No Smoking History: Never smoked Have you smoked in the past 12 months: No Number of Cigarettes Smoked Daily: 0 Hx Alcohol Use: No Drug/Substance Use Hx: No Substance Use Type: None Hx Substance Use Treatment: No Trauma Specific PMHX - Complaint Specific PMHX Arthritis: No Back Injury: No *Physical Exam - Vital Signs Last Vital Signs Temp Pulse Resp BP Pulse Ox 98.6 F 73 18 125/67 99 08/21/18 19:21 08/21/18 19:21 08/21/18 19:21 08/21/18 19:21 08/21/18 19:21 - Physical Exam General Appearance: No: Apparent Distress Neck: positive: Supple Respiratory/Chest: positive: Lungs Clear, Normal Breath Sounds. negative: Respiratory Distress Cardiovascular: positive: Regular Rhythm, Regular Rate, S1, S2. negative: Murmur Gastrointestinal/Abdominal: positive: Normal Bowel Sounds, Soft. negative: Tender, Distended, Guarding, Rebound Musculoskeletal: positive: Other (Mild TTP along lumbar spine with R paravertebral muscle tenderness; +slight pain on flexion of spine). negative: CVA Tenderness Neurologic: positive: power washer II-XII NML intact, Fully Oriented, Alert, Normal Mood/ Affect, Normal Response, Motor Strength 5/5. negative: Numbness, Sensory Deficit Moderate Sedation - Procedure Monitoring Vital Signs: Procedure Monitoring Vital Signs Temperature 98.6 F 08/21/18 19:21 Pulse Rate 73 08/21/18 19:21 Respiratory Rate 18 08/21/18 19:21 Blood Pressure 125/67 08/21/18 19:21 O2 Sat by Pulse Oximetry (%) 99 08/21/18 19:21 ED Treatment Course - ADDITIONAL ORDERS Additional order review: Laboratory Results 08/21/18 20:15 Urine HCG, Qual Negative - Medications Given in the ED: ED Medications Discontinued Medications Generic Name Dose Route Start Last Admin Trade Name Damián PRN Reason Stop Dose Admin Acetaminophen 650 mg 08/21/18 20:20 08/21/18 20:25 Tylenol - PO 08/21/18 20:21 650 mg ONCE ONE Administration Cyclobenzaprine HCl 10 mg 08/21/18 20:30 08/21/18 20:25 Cyclobenzaprine Hcl PO 08/21/18 20:31 10 mg ONCE ONE Administration Medical Decision Making - Medical Decision Making 22 y/o F with no sig pmh presents with nonradiating LBP x 3 days worse with bending down. Pain started after picking up 30 lb child, but states was not heavy for her. Denies direct trauma. Denies fever, sob, cp, abd pain, n/v/d, numbness/tingling around groin, bowel/bladder incontinence, numbness down legs UCG negative Given Tylenol and Flexeril Likely muscle strain Stable for d/c 08/21/18 21:07 *DC/Admit/Observation/Transfer Diagnosis at time of Disposition: Low back strain Qualifiers: Encounter type: initial encounter Qualified Code(s): S39.012A - Strain of muscle, fascia and tendon of lower back, initial encounter - Discharge Dispostion Disposition: HOME Condition at time of disposition: Good - Prescriptions Prescriptions: Cyclobenzaprine HCl [Flexeril -] 10 mg PO HS PRN #7 tablet PRN Reason: Muscle Spasms - Referrals - Patient Instructions Printed Discharge Instructions: DI for Low Back Pain Additional Instructions: Thank you for choosing [facility]. It was a pleasure taking care of you. You may take Motrin 600 mg every 4 hours by mouth as needed for mild to moderate pain. Take Motrin with food. Take Flexeril at night as needed for muscle spasms. This medication can make you drowsy. Apply warm compresses Physical therapy may also be of benefit. Follow-up with your PCP in 2-3 days. Return to the Emergency Department if your symptoms worsen or persist, you have fever, shortness of breath, chest pain, severe abdominal pain, vomiting, weakness of extremities (arms and/or legs), weakness of legs, unable to control bowel/bladder movements or other concerning symptoms. - Post Discharge Activity
[2018-08-22] MEDS ORDERED: CYCLOBENZAPRINE HCL 5 MG TABLET PO ONE (20:20)
== END 2018-08-21 21:14 | disposition home or self-care (01) ==
LOC: JERFT 19:09
DX: S39.012A Strain of muscle, fascia and tendon of lower back, initial encounter (principal); X50.0XXA Overexertion from strenuous movement or load, initial encounter; Y93.F2 Activity, caregiving, lifting; Y92.89 Other specified places as the place of occurrence of the external cause; Y99.8 Other external cause status
CPT/HCPCS: 84703; 99281-25

== ENCOUNTER 2019-04-14 13:27 | Emergency (ER) | payer OTHER ==
--- NOTE | 2019-04-14 13:37 | PDOC ---
Rapid Medical Evaluation Time Seen by Provider: 04/14/19 13:34 Medical Evaluation: Allergies Allergy/AdvReac Type Severity Reaction Status Date / Time No Known Allergies Allergy Verified 08/21/18 19:21 04/14/19 13:34 HPI: 2 days missed menses w RLQ pain PE: No gross deficits ORDERS:LABS Discharge Disposition - Diagnosis Abdominal pain - Referrals - Patient Instructions - Post Discharge Activity
[2019-04-14 13:38] VITALS: TEMP 98; BMI 34.9
[2019-04-14 15:59] LABS: EPI CELLS 20.4 /HPF (0-5/HPF); HYALINE CASTS 15 /lpf (0-8); PH,URINE 5.5 (5.0-8.0); URINE APPEARANCE CLOUDY; URINE BACTERIA 191.2 /hpf (NEGATIVE); URINE BILIRUBIN NEGATIVE (NEGATIVE); URINE COLOR YELLOW; URINE GLUCOSE (UA) NEGATIVE (NEGATIVE); URINE KETONE TRACE (NEGATIVE); URINE LEUK ESTERASE TRACE (NEGATIVE); URINE NITRITE NEGATIVE (NEGATIVE); URINE PROTEIN NEGATIVE (NEGATIVE); URINE RBC 3 /hpf (0-4); URINE UROBILINOGEN 0.2 mg/dL (0.2-1.0); URINE WBC 5 /hpf (0-5)
[2019-04-14 16:02] LABS: BASO % 0.4 % (0-2.0); EOS % 1.1 % (0-4.5); HEMATOCRIT 39.3 % (32.4-45.2); HEMOGLOBIN 13.2 GM/dL (10.7-15.3); LYMPH % 25.4 % (8-40); MCH 29.2 pg (25.7-33.7); MCHC 33.6 g/dl (32.0-36.0); MEAN CELL VOLUME 86.8 fl (80-96); MEAN PLT VOLUME 10.2 fl (7.5-11.1); NEUT % 68.1 % (42.8-82.8); PLATELET COUNT 252 K/MM3 (134-434); RBC 4.52 M/mm3 (3.60-5.2); RDW 13.6 % (11.6-15.6); WHITE BLOOD COUNT 7.6 K/mm3 (4.0-10.0)
--- NOTE | 2019-04-14 16:10 | PDOC ---
History of Present Illness - General History Source: Patient - History of Present Illness Timing/Duration: reports: other Quality: reports: severe Abdominal Pain Onset Location: reports: other (pelvic) <Manny Perdue - Last Filed: 04/14/19 18:03> <Verónica Blair Yosvanyheriberto - Last Filed: 04/15/19 07:36> - General Chief Complaint: Pain Stated Complaint: PELVIC PAIN Time Seen by Provider: 04/14/19 13:34 Past History - Past Medical History Asthma: No Cancer: No Cardiac Disorders: No COPD: No Diabetes: No HTN: No Seizures: No Thyroid Disease: No - Reproductive History Polycystic Ovaries: Yes - Suicide/Smoking/Psychosocial Hx Smoking Status: No Smoking History: Never smoked Have you smoked in the past 12 months: No Number of Cigarettes Smoked Daily: 0 Hx Alcohol Use: No Drug/Substance Use Hx: No Substance Use Type: None Hx Substance Use Treatment: No <Manny Perdue - Last Filed: 04/14/19 18:03> <RossyVerónica Yosvanyheriberto - Last Filed: 04/15/19 07:36> - Past Medical History Allergies/Adverse Reactions: Allergies Allergy/AdvReac Type Severity Reaction Status Date / Time No Known Allergies Allergy Verified 04/14/19 13:37 Home Medications: Ambulatory Orders NK [No Known Home Medication] 04/14/19 Review of Systems - Review of Systems Constitutional: No: Chills, Fever ABD/GI: Yes: Abdominal cramping. No: Nausea, Vomiting : No: Dysuria, Flank Pain, Hematuria <Manny Perdue Last Filed: 04/14/19 18:03> *Physical Exam - Vital Signs Last Vital Signs Temp Pulse Resp BP Pulse Ox 98 F 83 18 119/81 100 04/14/19 13:35 04/14/19 13:35 04/14/19 13:35 04/14/19 13:35 04/14/19 13:35 - Physical Exam General Appearance: Yes: Appropriately Dressed. No: Apparent Distress HEENT: positive: Normal Voice Neck: positive: Supple Respiratory/Chest: negative: Respiratory Distress Gastrointestinal/Abdominal: positive: Normal Bowel Sounds, Tender (to R suprapubic), Soft. negative: Distended, Guarding, Rebound Musculoskeletal: negative: CVA Tenderness Integumentary: positive: Dry, Warm Neurologic: positive: Fully Oriented, Alert, Normal Mood/Affect <Manny Perdue - Last Filed: 04/14/19 18:03> - Vital Signs Last Vital Signs Temp Pulse Resp BP Pulse Ox 98 F 83 18 119/81 100 04/14/19 13:35 04/14/19 13:35 04/14/19 13:35 04/14/19 13:35 04/14/19 13:35 <Verónica Blair - Last Filed: 04/15/19 07:36> ED Treatment Course - LABORATORY CBC & Chemistry Diagram: 04/14/19 15:45 04/14/19 15:45 <Manny Perdue - Last Filed: 04/14/19 18:03> - LABORATORY CBC & Chemistry Diagram: 04/14/19 15:45 04/14/19 15:45 - ADDITIONAL ORDERS Additional order review: 04/14/19 15:45 RBC 4.52 MCV 86.8 MCHC 33.6 RDW 13.6 D MPV 10.2 Neutrophils % 68.1 Lymphocytes % 25.4 Monocytes % 5.0 Eosinophils % 1.1 Basophils % 0.4 <Verónica Blair - Last Filed: 04/15/19 07:36> Medical Decision Making - Medical Decision Making 04/14/19 15:47 23 yo F, (twin+single )003, w/ R sided pelvic pain x 2 days. Menses 3 days late. No vag bleed, dysuria, n/v/f/c See exam 1st trimester pain (preg + in ED) ~4-5weeks by dates R/o ectopic Stable w/ sig R pelvic ttp here -US -labs -UA 04/14/19 18:03 US w/ 0.5cm spherical fluid structure which may represent early true ges sac per radiology, adnexa clear. Beta > 1400 w/ no e/o infxn on UA. Pt stable for dc w/ ALARM SERVICE TECHNICIAN f/u in 2 days <Manny Perdue - Last Filed: 04/14/19 18:03> - Medical Decision Making The patient was seen and evaluated in conjunction with midlevel provider under my direct supervision, ancillary studies were reviewed. I agree with the plan as outlined ANGELES Perdue. HPI, workup/dispo as outlined. VS reviewed, wnl. labs unremarkable. H/H wnl UA not indicative of infection, f/u culture. + with beta hcg 1400, below discriminatory zone. pelvic sono with fluid filled structure, ?early gestational sac. needs serial beta hcg in 2 days and repeat sono anticipate discharge, pcp /ALARM SERVICE TECHNICIAN followup, return precautions such as bleeding/ pain, worsening condition. 04/15/19 07:35 04/15/19 07:36 <Verónica Blair - Last Filed: 04/15/19 07:36> *DC/Admit/Observation/Transfer <Manny Perdue - Last Filed: 04/14/19 18:03> <Verónica Blair - Last Filed: 04/15/19 07:36> Diagnosis at time of Disposition: Abdominal pain affecting - Discharge Dispostion Disposition: HOME Condition at time of disposition: Good - Patient Instructions Printed Discharge Instructions: DI for Abdominal Pain -- Early Additional Instructions: Your ultrasound today showed a possible early in your uterus. Your beta hCG was over 1400. You will need a reassessment in 2 days, please follow-up with your ALARM SERVICE TECHNICIAN then If you are unable to, please return to the ER
[2019-04-14 16:26] LABS: ALBUMIN 3.6 g/dl (3.4-5.0); BILIRUBIN,TOTAL 0.3 mg/dL (0.2-1); BLOOD UREA NITROGEN 6.2 mg/dL (7-18); CALCIUM 8.8 mg/dL (8.5-10.1); CREATININE 0.6 mg/dL (0.55-1.3); POTASSIUM 3.7 mmol/L (3.5-5.1); TOT PROT 7.1 g/dl (6.4-8.2)
[2019-04-14 18:31] VITALS: BP 115/80; PULSE 80
== END 2019-04-14 18:32 | disposition home or self-care (01) ==
LOC: JER 13:27
DX: O26.891 Other specified pregnancy related conditions, first trimester (principal); Z3A.00 Weeks of gestation of pregnancy not specified; R10.9 Unspecified abdominal pain
CPT/HCPCS: 36415; 76817-TC; 80053; 81003; 84702; 84703; 85025; 99282-25

== ENCOUNTER 2019-06-03 00:17 | Emergency (ER) | payer OTHER ==
[2019-06-03 00:29] VITALS: BMI 38.4
[2019-06-03] MEDS ORDERED: ACETAMINOPHEN 500 MG TABLET (FP) PO ONE (01:26)
[2019-06-03] MEDS ORDERED: ACETAMINOPHEN 325 MG TABLET (FP) ONE (01:45)
--- NOTE | 2019-06-03 02:02 | PDOC ---
History of Present Illness - General Chief Complaint: Pain Stated Complaint: 10 WKS PREG STOMACH PAIN Time Seen by Provider: 06/03/19 01:25 History Source: Patient Exam Limitations: No Limitations - History of Present Illness Initial Comments: 06/03/19 01:56 Patient is a 23F with no significant medical history, currently 12 weeks , here today with lower abdominal pain after her child jumped on her belly in bed. Denies nausea, vomiting, fevers, chills. Denies dysuria, vaginal bleeding. Patient endorses a prior ultrasound showing normal girard . Past History - Past Medical History Allergies/Adverse Reactions: Allergies Allergy/AdvReac Type Severity Reaction Status Date / Time No Known Allergies Allergy Verified 04/14/19 13:37 Home Medications: Ambulatory Orders NK [No Known Home Medication] 04/14/19 Asthma: No Cancer: No Cardiac Disorders: No COPD: No Diabetes: No HTN: No Seizures: No Thyroid Disease: No - Reproductive History Polycystic Ovaries: Yes - Psycho Social/Smoking Cessation Hx Smoking Status: No Smoking History: Never smoked Have you smoked in the past 12 months: No Number of Cigarettes Smoked Daily: 0 Information on smoking cessation initiated: No Hx Alcohol Use: No Drug/Substance Use Hx: No Substance Use Type: None Hx Substance Use Treatment: No Review of Systems - Review of Systems Able to Perform ROS?: Yes Comments:: 06/03/19 02:02 GENERAL/CONSTITUTIONAL: No fever or chills. No weakness. HEAD, EYES, EARS, NOSE AND THROAT: No change in vision. No sore throat. CARDIOVASCULAR: No chest pain or shortness of breath RESPIRATORY: No cough, wheezing, or hemoptysis. GASTROINTESTINAL: No nausea, vomiting, diarrhea or constipation. GENITOURINARY: No dysuria, frequency, or change in urination. MUSCULOSKELETAL: No joint or muscle swelling or pain. No neck or back pain. SKIN: No rash NEUROLOGIC: No headache, vertigo, loss of consciousness, or change in strength/ sensation. ALLERGIC/IMMUNOLOGIC: No hives or skin allergy. *Physical Exam - Vital Signs Last Vital Signs Temp Pulse Resp BP Pulse Ox 98.0 F 85 17 125/59 L 100 06/03/19 00:19 06/03/19 00:19 06/03/19 00:19 06/03/19 00:19 06/03/19 00:19 - Physical Exam Comments: 06/03/19 02:02 GENERAL: Awake, alert, and fully oriented, in no acute distress HEAD: No signs of trauma, normocephalic, atraumatic EYES: PERRLA, EOMI, sclera anicteric, conjunctiva clear ENT: Auricles normal inspection, hearing grossly normal, nares patent, oropharynx clear without exudates. Moist mucosa NECK: Normal ROM, supple, no lymphadenopathy, JVD, or masses LUNGS: No distress, speaks full sentences, clear to auscultation bilaterally HEART: Regular rate and rhythm, normal S1 and S2, no murmurs, rubs or gallops, peripheral pulses normal and equal bilaterally. ABDOMEN: Soft, mildly tender in lower abdomen, normoactive bowel sounds. No guarding, no rebound. No masses EXTREMITIES: Normal inspection, Normal range of motion, no edema. No clubbing or cyanosis. NEUROLOGICAL: Cranial nerves II through XII grossly intact. Normal speech, normal gait, no focal sensorimotor deficits SKIN: Warm, Dry, normal turgor, no rashes or lesions noted. ED Treatment Course - RADIOLOGY Radiology Studies Ordered: Category Date Time Status <14WKS US [US] Stat Ultrasound 06/03/19 01:26 Taken Medical Decision Making - Medical Decision Making 06/03/19 02:03 Patient is 23F 12 week here today with minor abdominal trauma. Vitals normal and stable. No signs of serious trauma. Will evaluate with ultrasound, treat with tylenol, and re-evaluate. 06/03/19 03:23 TVUS negative. Pain improved. Will discharge home. Discharge - Discharge Information Problems reviewed: Yes Clinical Impression/Diagnosis: Abdominal pain affecting Condition: Good Disposition: HOME - Admission No - Follow up/Referral - Patient Discharge Instructions Patient Printed Discharge Instructions: DI for Abdominal Pain -- Early Additional Instructions: Please follow up with your OBGYN this week. Please return if you have any new worsening or concerning symptoms, especially increasing pain, fever and vaginal bleeding. Please take tylenol for pain. - Post Discharge Activity
[2019-06-03 02:42] VITALS: BP 100/49; PULSE 63; TEMP 98.5
--- NOTE | 2019-06-03 03:32 | PDOC ---
Documentation entered by Gloria Woodward SCRIBE, acting as scribe for Neyda Whitten DO. Neyda Whitten DO: This documentation has been prepared by the Trace hobson Adrianna, SCRIBE, under my direction and personally reviewed by me in its entirety. I confirm that the documentation accurately reflects all work, treatment, procedures, and medical decision making performed by me. Attending Attestation - Resident Resident Name: Jamar Pratt - ED Attending Attestation I have performed the following: I have examined & evaluated the patient, The case was reviewed & discussed with the resident, I agree w/resident's findings & plan - HPI HPI: The patient is a 23 year old female (currently at 12 weeks gestation), with no significant PMH, presenting with abdominal pain for a few hours. Patient notes the abdominal pain is secondary to her child jumping on her stomach while in bed. Last US showed normal . Denies any other complaints at this time. Allergies: NKA, NKDA Surgical History: None reported Social History: Denies EtOH, tobacco, or illicit drug use - Physicial Exam PE: Agree with resident exam - Medical Decision Making 06/03/19 03:31 23-year-old gravid female with pelvic pain after blunt trauma Pelvic ultrasound shows no abnormality, there is a live second trimester IUP DC home with outpatient OB follow-up
== END 2019-06-03 03:57 | disposition home or self-care (01) ==
LOC: JER 00:17
DX: O26.891 Other specified pregnancy related conditions, first trimester (principal); Z3A.10 10 weeks gestation of pregnancy; R10.9 Unspecified abdominal pain; W50.0XXA Accidental hit or strike by another person, initial encounter; Y93.89 Activity, other specified; Y92.89 Other specified places as the place of occurrence of the external cause
CPT/HCPCS: 76801-TC; 99282-25

== ENCOUNTER 2021-02-28 00:44 | Emergency (ER) | payer OTHER ==
[2021-02-28 01:28] VITALS: BP 109/62; PULSE 88; TEMP 98.1; BMI 43.4
[2021-02-28] MEDS ORDERED: ACETAMINOPHEN 500 MG TABLET (FP) PO ONE (01:43)
[2021-02-28] MEDS ORDERED: ACETAMINOPHEN 325 MG TABLET (FP) ONE (01:51)
== END 2021-02-28 02:07 | disposition home or self-care (01) ==
LOC: JER 00:44
DX: S00.83XA Contusion of other part of head, initial encounter (principal); W22.8XXA Striking against or struck by other objects, initial encounter
CPT/HCPCS: 99283-25

== ENCOUNTER → 2021-07-16 | Emergency (ER) | payer OTHER ==
[2021-07-16 18:10] VITALS: BP 103/44; PULSE 83; TEMP 97; BMI 43.9
== END | disposition home or self-care (01) ==
LOC: JERFT 18:02
DX: G56.01 Carpal tunnel syndrome, right upper limb (principal)
CPT/HCPCS: 99282-25

== ENCOUNTER 2021-12-08 00:59 | Emergency (ER) | payer OTHER ==
[2021-12-08 01:53] VITALS: BP 115/79; PULSE 85; TEMP 98; BMI 42.7
[2021-12-08] MEDS ORDERED: ACETAMINOPHEN 325 MG TABLET (FP) PO ONE (02:17)
[2021-12-08] MEDS ORDERED: METOCLOPRAMIDE HCL INJECTION 10 MG/2 ML VIAL IM ONE (02:24)
[2021-12-08] MEDS ORDERED: METOCLOPRAMIDE HCL 10 MG TABLET (FP) PO ONE ×2 (02:25→02:26)
[2021-12-08] MEDS ORDERED: ACETAMINOPHEN 325 MG TABLET (FP) ONE (02:26)
== END 2021-12-08 04:27 | disposition home or self-care (01) ==
LOC: JER 00:59
DX: R51.9 Headache, unspecified (principal)
CPT/HCPCS: 99283-25

== ENCOUNTER 2024-02-22 15:56 | Emergency (ER) | payer OTHER ==
[2024-02-22 16:02] VITALS: BMI 37.1
[2024-02-22 17:43] LABS: EPI CELLS >36 /uL (0-25.1); HYALINE CASTS 1 /uL (0-3.1); PH,URINE 5.5 (5.0-8.0); URINE APPEARANCE CLEAR; URINE BACTERIA 611 /uL (0-1359); URINE BILIRUBIN NEGATIVE (NEGATIVE); URINE COLOR YELLOW; URINE GLUCOSE (UA) NEGATIVE (NEGATIVE); URINE KETONE TRACE (NEGATIVE); URINE LEUK ESTERASE 1+ (NEGATIVE); URINE NITRITE NEGATIVE (NEGATIVE); URINE PROTEIN NEGATIVE (NEGATIVE); URINE RBC 10 /uL (0-23.9); URINE UROBILINOGEN 0.2 mg/dL (0.2-1.0); URINE WBC 30 /uL (0-25.8)
[2024-02-22 17:45] LABS: INR 0.96 (0.83-1.09); PROTHROMBIN TIME (PATIENT) 11.1 SEC (9.7-13.0)
[2024-02-22 17:51] LABS: HCG,QUALITATIVE URINE Negative
[2024-02-22 17:56] LABS: POTASSIUM 4.3 mmol/L (3.5-5.1)
[2024-02-22 17:58] LABS: CALCIUM 9.1 mg/dL (8.5-10.1)
[2024-02-22 17:59] LABS: ALBUMIN 3.6 g/dl (3.4-5.0); BLOOD UREA NITROGEN 8.8 mg/dL (7-18)
[2024-02-22 18:02] LABS: CREATININE 0.5 mg/dL (0.55-1.3)
[2024-02-22 18:04] LABS: BILIRUBIN,TOTAL 0.4 mg/dL (0.2-1); TOT PROT 7.4 g/dl (6.4-8.2)
[2024-02-22 18:09] LABS: BASO % 0.3 % (0-2.0); PLATELET COUNT 271 10^3/uL (134-434); RDW 13.8 % (11.6-15.6)
[2024-02-22 18:11] LABS: EOS % 1.7 % (0-4.5); HEMATOCRIT 37.6 % (32.4-45.2); MCH 29.8 pg (25.7-33.7); MCHC 34.7 g/dl (32.0-36.0); MEAN CELL VOLUME 85.9 fl (80-96); MEAN PLT VOLUME 9.6 fl (7.5-11.1); MONO % 5.1 % (3.8-10.2); NEUT % 62.9 % (42.8-82.8); RBC 4.37 M/mm3 (3.60-5.2); WHITE BLOOD COUNT 8.6 K/mm3 (4.0-10.0)
[2024-02-22 18:53] VITALS: BP 117/54; TEMP 98
[2024-02-22 19:08] VITALS: PULSE 61; RESP 17
== END 2024-02-22 20:11 | disposition home or self-care (01) ==
LOC: JER 15:56
PROC: 3E033GC Introduction of Other Therapeutic Substance into Peripheral Vein, Percutaneous Approach (ICD-10-PCS; principal; 2024-02-22)
DX: N83.201 Unspecified ovarian cyst, right side (principal); R10.31 Right lower quadrant pain
CPT/HCPCS: 36415; 74177-TC; 80053; 81003; 84703; 85025; 85610; 86850; 86900; 86901; 87077; 87086; 99285-25; Q9967

== ENCOUNTER 2024-03-16 05:18 | Emergency (ER) | payer OTHER ==
[2024-03-16 05:29] VITALS: BMI 39.4
[2024-03-16 08:39] VITALS: BP 114/73; PULSE 57; RESP 16; TEMP 98.4
== END 2024-03-16 08:46 | disposition home or self-care (01) ==
LOC: JER 05:18
DX: R07.89 Other chest pain (principal); R00.2 Palpitations; F41.9 Anxiety disorder, unspecified
CPT/HCPCS: 93005; 93010; 99283-25

== ENCOUNTER 2024-03-18 13:58 | Emergency (ER) | payer OTHER ==
[2024-03-18 14:08] VITALS: RESP 18; BMI 40.7
[2024-03-18] MEDS ORDERED: METOCLOPRAMIDE HCL INJECTION 10 MG/2 ML VIAL ONE (17:40)
[2024-03-18] MEDS ORDERED: ACETAMINOPHEN 500 MG TABLET (FP) ONE (17:40)
[2024-03-18] MEDS: SODIUM CHLORIDE 0.9% 500 ML INFUS.BAG IV ONE (18:00)
[2024-03-18 18:01] LABS: BASO % 0.5 % (0-2.0); EOS % 1.1 % (0-4.5); HEMATOCRIT 38.4 % (32.4-45.2); HEMOGLOBIN 12.8 GM/dL (10.7-15.3); MCH 29.4 pg (25.7-33.7); MCHC 33.4 g/dl (32.0-36.0); MEAN PLT VOLUME 9.5 fl (7.5-11.1); MONO % 4.9 % (3.8-10.2); NEUT % 67.5 % (42.8-82.8); PLATELET COUNT 276 10^3/uL (134-434); RBC 4.37 M/mm3 (3.60-5.2); RDW 13.8 % (11.6-15.6); WHITE BLOOD COUNT 10.1 K/mm3 (4.0-10.0)
[2024-03-18] MEDS: ACETAMINOPHEN 500 MG TABLET (FP) PO ONE (18:01)
[2024-03-18] MEDS: METOCLOPRAMIDE HCL INJECTION 10 MG/2 ML VIAL IVPB ONE (18:01)
[2024-03-18 18:31] LABS: POTASSIUM 4.1 mmol/L (3.5-5.1)
[2024-03-18 18:34] LABS: CALCIUM 8.9 mg/dL (8.5-10.1)
[2024-03-18 18:35] LABS: ALBUMIN 3.6 g/dl (3.4-5.0); BLOOD UREA NITROGEN 9.5 mg/dL (7-18)
[2024-03-18 18:38] LABS: CREATININE 0.6 mg/dL (0.55-1.3)
[2024-03-18 18:39] LABS: BILIRUBIN,TOTAL 0.6 mg/dL (0.2-1); TOT PROT 7.4 g/dl (6.4-8.2)
[2024-03-18 19:11] VITALS: BP 113/46; PULSE 67; TEMP 98.3
[2024-03-18] MEDS ORDERED: KETOROLAC TROMETHAMINE 30 MG/1 ML VIAL ONE (20:40)
[2024-03-18] MEDS: KETOROLAC TROMETHAMINE 30 MG/1 ML VIAL IVPUSH ONE (21:21)
== END 2024-03-18 21:44 | disposition home or self-care (01) ==
LOC: JER 13:58
PROC: 3E0333Z Introduction of Anti-inflammatory into Peripheral Vein, Percutaneous Approach (ICD-10-PCS; principal; 2024-03-18)
PROC: 3E033GC Introduction of Other Therapeutic Substance into Peripheral Vein, Percutaneous Approach (ICD-10-PCS; 2024-03-18)
DX: R51.9 Headache, unspecified (principal); R20.0 Anesthesia of skin
CPT/HCPCS: 36415; 70450-TC; 80053; 84703; 85025; 99284-25

== ENCOUNTER 2024-04-30 13:32 | Emergency (ER) | payer OTHER ==
[2024-04-30 13:48] VITALS: RESP 19; TEMP 98.4; BMI 44.2
[2024-04-30] MEDS ORDERED: ONDANSETRON 4 MG/2 ML VIAL ONE (14:47)
[2024-04-30] MEDS ORDERED: ACETAMINOPHEN INJECTION 100 ML ONE (14:47)
[2024-04-30 14:54] LABS: BASO % 0.4 % (0-2.0); EOS % 0.9 % (0-4.5); HEMATOCRIT 39.9 % (32.4-45.2); HEMOGLOBIN 13.3 GM/dL (10.7-15.3); LYMPH % 25.5 % (8-40); MCH 28.9 pg (25.7-33.7); MCHC 33.2 g/dl (32.0-36.0); MEAN CELL VOLUME 86.9 fl (80-96); MEAN PLT VOLUME 9.9 fl (7.5-11.1); MONO % 6.1 % (3.8-10.2); NEUT % 67.1 % (42.8-82.8); PLATELET COUNT 246 10^3/uL (134-434); RBC 4.59 M/mm3 (3.60-5.2); RDW 13.7 % (11.6-15.6)
[2024-04-30 14:59] LABS: HCG,QUALITATIVE URINE Negative
[2024-04-30 15:00] LABS: URINE APPEARANCE CLEAR; URINE BILIRUBIN NEGATIVE (NEGATIVE); URINE COLOR YELLOW; URINE GLUCOSE (UA) NEGATIVE (NEGATIVE); URINE KETONE NEGATIVE (NEGATIVE); URINE LEUK ESTERASE TRACE (NEGATIVE); URINE NITRITE NEGATIVE (NEGATIVE); URINE PROTEIN NEGATIVE (NEGATIVE); URINE UROBILINOGEN 0.2 mg/dL (0.2-1.0)
[2024-04-30] MEDS: ACETAMINOPHEN 1000 MG/100 ML BAG IVPB ONE (15:00)
[2024-04-30] MEDS: SODIUM CHLORIDE 1,000 ML IV STA ×2 (15:00→18:33)
[2024-04-30] MEDS: ONDANSETRON 4 MG/2 ML VIAL IVPUSH ONE (15:01)
[2024-04-30 15:20] LABS: POTASSIUM 3.9 mmol/L (3.5-5.1)
[2024-04-30 15:22] LABS: ALBUMIN 3.8 g/dl (3.4-5.0); BLOOD UREA NITROGEN 6.1 mg/dL (7-18)
[2024-04-30 15:24] LABS: CALCIUM 9.4 mg/dL (8.5-10.1)
[2024-04-30 15:25] LABS: CREATININE 0.6 mg/dL (0.55-1.3)
[2024-04-30 15:26] LABS: BILIRUBIN,TOTAL 0.5 mg/dL (0.2-1)
[2024-04-30 15:27] LABS: TOT PROT 7.6 g/dl (6.4-8.2)
[2024-04-30 16:16] LABS: HIV INTERPRETATION NEGATIVE (NEGATIVE)
[2024-04-30] MEDS ORDERED: diazePAM 2 MG TABLET PO ONE (17:51)
[2024-04-30] MEDS ORDERED: diazePAM CARPU-JECT 10 MG/2 ML DISP.SYRIN IVPUSH ONE (18:20)
[2024-04-30 19:16] VITALS: BP 108/54; PULSE 65
== END 2024-04-30 19:16 | disposition home or self-care (01) ==
LOC: JER 13:32
PROC: 3E033NZ Introduction of Analgesics, Hypnotics, Sedatives into Peripheral Vein, Percutaneous Approach (ICD-10-PCS; principal; 2024-04-30)
PROC: 3E033GC Introduction of Other Therapeutic Substance into Peripheral Vein, Percutaneous Approach (ICD-10-PCS; 2024-04-30)
PROC: 3E033GC Introduction of Other Therapeutic Substance into Peripheral Vein, Percutaneous Approach (ICD-10-PCS; 2024-04-30)
PROC: 3E0337Z Introduction of Electrolytic and Water Balance Substance into Peripheral Vein, Percutaneous Approach (ICD-10-PCS; 2024-04-30)
PROC: 3E0337Z Introduction of Electrolytic and Water Balance Substance into Peripheral Vein, Percutaneous Approach (ICD-10-PCS; 2024-04-30)
DX: R11.2 Nausea with vomiting, unspecified (principal); R10.31 Right lower quadrant pain
CPT/HCPCS: 36415; 74177-TC; 76830-TC; 80053; 81003; 84703; 85025; 86803; 87086; 87389; 99285-25; J0131

== ENCOUNTER 2024-05-20 16:17 | Emergency (ER) | payer OTHER ==
[2024-05-20 16:22] VITALS: BP 128/83; PULSE 100; RESP 18; TEMP 98; BMI 42.5
== END 2024-05-20 19:47 | disposition home or self-care (01) ==
LOC: JERFT 16:17
DX: M79.661 Pain in right lower leg (principal); M79.662 Pain in left lower leg; R20.0 Anesthesia of skin; R20.2 Paresthesia of skin
CPT/HCPCS: 93970-TC; 99284-25

== ENCOUNTER 2024-06-27 14:10 | Emergency (ER) | payer OTHER ==
[2024-06-27 14:18] VITALS: BP 143/80; PULSE 78; RESP 18; TEMP 98.8; BMI 42.5
[2024-06-27] MEDS ORDERED: IBUPROFEN 600 MG TABLET (FP) PO ONE (15:05)
[2024-06-27] MEDS: IBUPROFEN 600 MG TABLET (FP) PO ONE (15:08)
[2024-06-27 17:11] LABS: HIV INTERPRETATION NEGATIVE (NEGATIVE)
== END 2024-06-27 17:51 | disposition home or self-care (01) ==
LOC: JERFT 14:10
DX: M25.562 Pain in left knee (principal); R10.9 Unspecified abdominal pain
CPT/HCPCS: 36415; 73560-TC-LT-FY; 86803; 87389; 99284-25